=== PATIENT | female | born 1995 | race Caucasian/White ===

== ENCOUNTER 2019-04-08 09:52 | Emergency (ER) | payer BC, OTHER ==
[~2019-04-08] VITALS: Ht 162.6 cm; Wt 52.6 kg
[2019-04-08] MEDS ORDERED: BCP (10:22)
--- NOTE | 2019-04-08 10:23 | NUR ---
PT TO ED FOR RIGHT SIDED FLANK PAIN AND RLQ STARTING LAST NOC. PT PRESENTS N/V SINCE 0600 D/T PAIN. PT CONNECTED TO MONITORS. MALCOLM. HELIO PATEL TO BS FOR ASSESSMENT. AWAITING ORDERS.
[2019-04-08] MEDS ORDERED: ONDANSETRON 2MG/ML, 2ML ONE ×2 (10:36→13:36)
[2019-04-08] MEDS ORDERED: MORPHINE SULFATE 4 MG/ML, 1ML ONE ×2 (10:36→11:06)
[2019-04-08] MEDS: MORPHINE SULFATE 4 MG/ML, 1ML IVPush PRN ×2 (10:38→11:08)
--- NOTE | 2019-04-08 10:41 | NUR ---
PT RESTING IN ROOM WITH FAMILY AT BS. VSS. IV ESTABLISHED AND LABS DRAWN. PT MEDICATED PER AUG. COOL WASHCLOTH AND PAPER TOWELS PROVIDED. NO OTHER NEEDS EXPRESSED. CALL LIGHT WITHIN REACH. AWAITING RESULTS.
[2019-04-08 10:51] LABS: BASOPHILS # (AUTO) 0.03 x10^3/uL (0-0.1); BASOPHILS % (AUTO) 0 % (0-1); EOSINOPHILS % (AUTO) 1 % (1-7); LYMPHOCYTES # (AUTO) 1.55 x10^3/uL (1-3.4); LYMPHOCYTES % (AUTO) 15 % (22-44); MD NO; MEAN CORPUSCULAR HEMOGLOBIN 30.6 pg (27.0-34.8); MEAN CORPUSCULAR HGB CONC 33.7 g/dL (32.4-35.8); MEAN CORPUSCULAR VOLUME 90.6 fL (80-100); MEAN PLATELET VOLUME 8.3 fL (7.4-10.4); MONOCYTES # (AUTO) 0.39 x10^3/uL (0.2-0.8); MONOCYTES % (AUTO) 4 % (2-9); NEUTROPHILS # (AUTO) 8.08 x10^3/uL (1.8-6.8); NEUTROPHILS % (AUTO) 80 % (42-75); PLATELET COUNT 307 x10^3/uL (130-400); RED BLOOD COUNT 4.93 x10^6/uL (3.82-5.3); RED CELL DISTRIBUTION WIDTH 12.4 % (9.6-15.2)
--- NOTE | 2019-04-08 10:56 | NUR ---
WARM BLANKET PROVIDED FOR COMFORT. VSS. NO NEEDS EXPRESSED. AWAITING LAB RESULTS.
[2019-04-08] MEDS ORDERED: ONDANSETRON 2MG/ML, 2ML IVPush ONE ×2 (11:00→14:00)
[2019-04-08 11:04] LABS: ANION GAP 12 mmol/L (5-15); CALCIUM 9.1 mg/dL (8.5-10.1); CHLORIDE 109 mmol/L (98-107)
[2019-04-08 11:10] LABS: ALANINE AMINOTRANSFERASE 19 U/L (12-78); ALKALINE PHOSPHATASE 35 U/L (45-117); BILIRUBIN,TOTAL 0.5 mg/dL (0.2-1.0); CREATININE 0.93 mg/dL (0.55-1.02); TOTAL PROTEIN 8.1 g/dL (6.4-8.2)
[2019-04-08 11:12] LABS: MICROSCOPIC INDICATED
[2019-04-08 11:14] LABS: CULTURE INDICATED? YES
[2019-04-08] MEDS ORDERED: SODIUM CHLORIDE FLUSH 10ML SYR IVF ONE (11:30)
--- NOTE | 2019-04-08 12:18 | NUR ---
PT RESTING IN ROOM. VSS. PT REPORTS DECREASE IN PAIN BU T'IT'S STILL REALLY BAD." PT NO LONGER MOANING OR VOMITING AND APPEARS TO BE LAUGHING WITH FAMILY. WILL NOTIFY EDMD. HUSSAIN JULIEN.
[2019-04-08] MEDS ORDERED: KETOROLAC 30 MG/1 ML IVPush ONE (13:00)
[2019-04-08] MEDS ORDERED: KETOROLAC 30 MG/1 ML ONE ×2 (13:00→14:12)
--- NOTE | 2019-04-08 13:17 | NUR ---
PT RESTING IN ROOM WITH FAMILY AT BS. VSS. PT REQUESTING MORE PAIN MEDICATION. PAOLA PATEL NOTIFIED. ORDERS RECEIVED AND ADMINISTERED. PT NOW REPORTS NAUSEA AND REQUESTS MEDICATION. WILL NOTIFY PAOLA PATEL. CT COMPLETE. AWAITING RESULTS.
--- NOTE | 2019-04-08 13:57 | NUR ---
PAOLA PATEL TO BS TO UPDATE ON PO CAND RESULTS. PLAN FOR IVF BOLUS AND DC. IVF STARED AT THIS TIME.
[2019-04-08] MEDS ORDERED: SODIUM CHLORIDE 0.9% 1,000ML IVBOLUS ONE (14:00)
[2019-04-08] MEDS ORDERED: HYDROmorphone 1 MG/ML, 1ML VIAL ONE (14:16)
[2019-04-08] MEDS ORDERED: HYDROmorphone 1 MG/ML, 1ML INJ IV ONE (14:30)
[2019-04-08 15:26] VITALS: BP 99/65
--- NOTE | 2019-04-08 15:26 | NUR ---
PT RESTING IN ROOM WITH FAMILY AT BS. VSS. NO NEEDS EXPRESSED. CALL LIGHT WITHIN REACH. PT REPORTS DECREASE IN PAIN AFTER MEDICATION ADMINISTRATION. CHART UP FOR RECHECK.
--- NOTE | 2019-04-08 16:16 | NUR ---
Patient/Caregiver given discharge instructions and they have confirmed that they understand the instructions. Patient ambulatory with steady gait.
== END 2019-04-08 16:18 | disposition home or self-care (01) ==
LOC: ED 15:14
DX: N20.1 Calculus of ureter (principal); R11.10 Vomiting, unspecified
CPT/HCPCS: 36415; 74176; 80053; 81001; 83690; 84703; 85025; 87086; 96361; 96374; 96375; 96376; 99284; J1170; J1885; J2270; J2405; J7030